=== PATIENT | male | born 1965 | race Caucasian/White ===

== ENCOUNTER → 2021-01-24 12:42 | Outpatient (CLI) | payer OTHER, SELFPAY ==
--- NOTE | 2021-01-24 12:45 | ECHOD_ITS ---
Reason For Study: Palps Procedure This was a 2D Doppler, Color Flow transthoracic echocardiogram. Exam performed in department. Left Ventricle Normal LV size. Left ventricular systolic function is normal. The estimated ejection fraction is 65 %. The global longitudinal strain = -22 % (normal). No evidence for diastolic dysfunction. No regional wall motion abnormalities noted. Right Ventricle Normal RV size. Normal systolic function. Atria Normal left atrium. Normal right atrium. No doppler evidence for ASD. Mitral Valve There is no mitral annular calcification. Normal mitral valve. Trivial mitral valve insufficiency. Tricuspid Valve Normal tricuspid valve. Trivial tricuspid valve insufficiency. Right ventricular systolic pressure estimated to be 28 mmHg. Aortic Valve Trisinus/trileaflet aortic valve. Mild focal aortic valve thickening. Pulmonic Valve The pulmonic valve is not well visualized. Great Vessels Normal sized aortic root. Pericardium/Pleural No pericardial effusion. MMode/2D Measurements & Calculations LVIDd: 4.4 cm IVSd: 1.2 cm Ao root diam: 3.6 cm LVIDs: 1.7 cm LVPWd: 1.1 cm RVDd: 3.4 cm FS: 60.9 % LAV(MOD-bp): 52.7 ml EDV(MOD-sp4): 108.7 ml EDV(MOD-sp2): 73.3 ml LAV(MOD-bp) Indexed: 25.5 ml/m2 ESV(MOD-sp4): 26.1 ml EF(MOD-sp2): 70.2 % LAV(MOD-sp2): 40.6 ml EF(MOD-sp4): 76.0 % LAV(MOD-sp4): 48.4 ml SV(MOD-sp4): 82.6 ml SV(MOD-sp2): 51.5 ml LA A4 area: 17.4 cm2 LA dimension(2D): 3.6 cm Doppler Measurements & Calculations MV E max andrzej: 78.2 cm/sec Lat Peak E' Andrzej: 14.5 cm/sec Med Peak E' Andrzej: 8.7 cm/sec MV A max andrzej: 54.4 cm/sec E/E' lat: 5.4 E/E' med: 9.0 MV E/A: 1.4 Ao V2 max: 165.9 cm/sec LV V1 max: 131.3 cm/sec PA V2 max: 122.1 cm/sec Ao max P.0 mmHg LV V1 max P.9 mmHg TR max andrzej: 250.7 cm/sec TR max P.2 mmHg Interpretation Summary Left ventricular systolic function is normal. The estimated ejection fraction is 65 %. The global longitudinal strain = -22 % (normal). Trivial mitral valve insufficiency. Trivial tricuspid valve insufficiency. Mild focal aortic valve thickening. Right ventricular systolic pressure estimated to be 28 mmHg. No evidence for diastolic dysfunction. Ordering Physician: Annmarie Pond Referring Physician: Annmarie Pond Performed By: Kenzie Guillory RDCS
== END ==
PROVIDERS: PCP Internal Medicine; Referring Provider Internal Medicine; Visit Provider Internal Medicine
DX: R00.2 Palpitations (principal)
CPT/HCPCS: 93225; 93226; 93306

== ENCOUNTER → 2022-09-01 | Outpatient (CLI) | payer SELFPAY ==
[2022-09-01 12:45] LABS: Thyroid Stim Hormone (TSH) 1.32 uIU/mL (0.358-3.74)
== END | disposition home or self-care (01) ==
LOC: MTLAB 10:25
PROVIDERS: PCP Internal Medicine; Referring Provider Internal Medicine; Visit Provider Internal Medicine
DX: F41.9 Anxiety disorder, unspecified (principal)
CPT/HCPCS: 36415; 84443

== ENCOUNTER → 2024-11-07 | Outpatient (CLI) | payer BC, SELFPAY ==
--- NOTE | 2024-11-07 13:05 | CT_ITS ---
STUDY: CT CHEST WITH CONTRAST REASON FOR EXAM: Male, 59 years old. Abnormal Findings On Imaging test -- Incidental Findings on Cardiac Calcium Score RADIATION DOSAGE (If Supplied By Facility): CTDIvol = ( 12.67 ) mGy, DLP = ( 615.82 ) mGycm TECHNIQUE: Transaxial imaging was performed following intravenous administration of IV 75mL Isovue-[id number]. Multiplanar coronal and sagittal images were reformatted. Individualized dose optimization techniques were used for this CT. COMPARISON: No relevant priors. FINDINGS: CHEST The lungs are normal. There is no demonstrated pleural abnormality. There are calcifications of the coronary arteries. Normal mediastinum. Normal hilar regions. Normal unenhanced pulmonary arteries. Normal aorta arch and descending thoracic aorta. There is demineralization of the thoracic spine. Small sliding hiatal hernia. CT/Chest WITH Contrast IMPRESSION: Coronary artery calcification. Hiatal hernia. Electronically Signed: Reji Couch MD at 15:26 EST ,
== END | disposition home or self-care (01) ==
LOC: CT 13:04
PROVIDERS: PCP Internal Medicine; Referring Provider Internal Medicine; Visit Provider Internal Medicine
DX: R93.89 Abnormal findings on diagnostic imaging of other specified body structures (principal)
CPT/HCPCS: 71260; Q9967